=== PATIENT | female | born 2000 | race Caucasian/White ===

== ENCOUNTER 2025-07-02 19:40 | Emergency (ER) | payer BC, SELFPAY ==
--- NOTE | 2025-07-02 19:47 | ED_ITS ---
HPI - URI/Sore Throat General Chief Complaint: Upper Respiratory Infection Stated Complaint: Head Pain Source: patient and RN notes reviewed Mode of arrival: ambulatory Limitations: no limitations History of Present Illness MD elicited complaint: cough and sore throat Related Data Home Medications ?Medication ?Instructions ?Recorded ?Confirmed ?Last Taken ?Type etonogestrel 0.12 mg-ethinyl vag ring vaginal 07/02/25 Unknown History estradiol 0.015 mg/24 hr vaginal ring (EnilloRing) sertraline 25 mg tablet mg 07/02/25 Unknown History Allergies Allergy/AdvReac Type Severity Reaction Status Date / Time No Known Allergies Allergy Verified 07/02/25 19:47 Review of Systems Review of Systems: CONSTITUTIONAL: Denies malaise, chills, sweats, or fever. EYES: Denies visual changes, redness, or discharge. ENT: Reports rhinorrhea, congestion, sinus pain, otalgia and sore throat. CARDIOVASCULAR: Denies chest pain, palpitations, or edema. RESPIRATORY: Reports cough. Denies dyspnea. GASTROINTESTINAL: Denies abdominal pain, nausea, vomiting, diarrhea SKIN: Denies rash or itching. MUSCULOSKELETAL: Denies myalgia. NEUROLOGIC: Denies headache. All systems reviewed & are unremarkable except as noted in HPI and below PMFSH Comments At time of signature, agree with nursing past medical, surgical, social and family history. There is no relevant family history pertinent to the presenting complaint Exam Narrative: GENERAL: Well-appearing, well-nourished, and in no acute distress. HEAD: Normocephalic EYES: PERRLA, conjunctivae clear ENT: Nares clear, turbinates edematous and erythematous, clear discharge. Mucous membranes moist. TM pearly [place] with dull light reflex bilaterally; no tragal tenderness. Oropharynx not erythematous without lesions. Tonsils not enlarged and without exudate, no drooling, no hoarseness, no trismus, uvula midline. NECK: Supple. No lymphadenopathy CHEST: Clear to auscultation, breath sounds equal. No wheezing, rhonchi, rales, or stridor. No respiratory distress, speaks in full sentences. HEART: Regular rate and rhythm. No murmur heard. SKIN: Warm, dry, no rash. NEURO: Alert and oriented x3. PSYCH: Normal mood and affect Course Course Level of Care: Express Care Visit MDM Differential Diagnosis Differential Diagnosis: I evaluated this patient in the express care. History is obtained from patient who is an independent historian and physical exam was performed.? Available medical records were reviewed. ? Exam findings and relevant testing show no acute concerns or changes; patient is non-toxic appearing and is in no distress. ? Differential diagnosis considered: Davila virus, strep pharyngitis, allergic rhinitis, upper respiratory tract infection, sinusitis, rhinosinusitis, nasopharyngitis. viral pharyngitis, otitis media, otitis externa, pneumonia, bronchitis, viral cough syndrome, viral syndrome, and influenza. Differential diagnosis and treatment plan were discussed with the patient. Patient agrees with discussion and after shared medical decision making agrees with plan of care. All questions were answered to the patient's satisfaction. Patient is appropriate for outpatient treatment and follow-up. Discharge Plan Discharge Patient Language: [place] Prescriptions: No Action sertraline 25 mg tablet etonogestrel-ethinyl estradiol [EnilloRing] 0.12-0.015 mg/24 hr ring VAGINAL Follow-up/Referrals: PHYSICIAN,DOORS PREFITTER [Primary Care Provider, Internal Medicine]
[2025-07-02 19:50] VITALS: BP 141/85; PULSE 93; RESP 18; TEMP 36.9; O2SAT 100
--- NOTE | 2025-07-02 19:53 | ED_ITS ---
HPI - Headache General Chief Complaint: Headache Stated Complaint: Head Pain Time Seen by Provider: 07/02/25 19:50 Mode of arrival: ambulatory Limitations: no limitations History of Present Illness HPI Narrative: 24-year-old female presents concern for headache this started yesterday. Reports the headache is in the back of her head and her neck also hurts. She denies injury or trauma. She denies current cold symptoms however reports she does have left ear fullness. Reports she had a cold about 2 weeks ago and since then has had a fullness and crackling in her right ear. She denies nausea, vomiting. She denies history of migraines. She has been taking Tylenol without relief MD elicited complaint: headache Related Data Home Medications ?Medication ?Instructions ?Recorded ?Confirmed ?Last Taken ?Type etonogestrel 0.12 mg-ethinyl vag ring vaginal 07/02/25 Unknown History estradiol 0.015 mg/24 hr vaginal ring (EnilloRing) sertraline 25 mg tablet mg 07/02/25 Unknown History Allergies Allergy/AdvReac Type Severity Reaction Status Date / Time amoxicillin (From Augmentin) Allergy Mild Hives Verified 07/02/25 19:53 clavulanic acid (From Allergy Mild Hives Verified 07/02/25 19:53 Augmentin) Review of Systems Review of Systems: CONSTITUTIONAL: Denies malaise, chills, sweats, or fever. EYES: Denies visual changes, redness, or discharge. ENT: Denies rhinorrhea, congestion, sinus pain, or sore throat. Reports right ear fullness and crackling CARDIOVASCULAR: Denies chest pain, palpitations, or edema. RESPIRATORY: Denies cough or dyspnea. GASTROINTESTINAL: Denies nausea, vomiting MUSCULOSKELETAL: Reports myalgia. NEUROLOGIC: Denies numbness, weakness. Reports headache. All systems reviewed & are unremarkable except as noted in HPI and below PMFSH Comments At time of signature, agree with nursing past medical, surgical, social and family history. There is no relevant family history pertinent to the presenting complaint Exam Narrative: GENERAL: Well-appearing, well-nourished, and in no acute distress. HEAD: Normocephalic, atraumatic. EYES: PERRLA, sclera clear, and EOMI. No nystagmus. ENT: Nares clear, right turbinates erythematous and inflamed, no rhinorrhea or epistaxis. Mucous membranes moist. TM p[place] with sharp light reflex on the left, full on the right; no tragal tenderness. Oropharynx without erythema or lesions. Tonsils not enlarged and without exudate. NECK: Supple. No lymphadenopathy. No jugular venous distension, thyromegaly, or carotid bruits. Carotids were easily palpable bilaterally. CHEST: No respiratory distress. Clear to auscultation. No bony deformities, no asymmetry. Speaks in full sentences. HEART: Regular rate and rhythm. No murmur heard. Normal peripheral pulses. EXTREMITIES: Normal range of motion. No edema. Normal strength and sensation. SKIN: Warm, dry, no visible rash. NEURO: Alert and oriented x3. No focal deficits. Cranial nerves II through XII grossly intact PSYCH: Normal mood and affect Course Course Level of Care: [facility] Visit Vital Signs Vital signs: Vital Signs Temperature 98.4 F 07/02/25 19:50 Pulse Rate 93 07/02/25 19:50 Respiratory Rate 18 07/02/25 19:50 Blood Pressure 141/85 H 07/02/25 19:50 Pulse Oximetry 100 07/02/25 19:50 Oxygen Delivery Room Air 07/02/25 19:50 Temperature 98.4 F 07/02/25 19:50 Pulse Rate 93 07/02/25 19:50 Respiratory Rate 18 07/02/25 19:50 Blood Pressure 141/85 H 07/02/25 19:50 Pulse Oximetry 100 07/02/25 19:50 Oxygen Delivery Room Air 07/02/25 19:50 MDM Differential Diagnosis Differential Diagnosis: I evaluated this patient in the [facility]. History is obtained from patient who is an independent historian and physical exam was performed.? Available medical records were reviewed. ? Exam findings and relevant testing show no acute concerns or changes; patient is non-toxic appearing and is in no distress. ? Differential diagnostic considerations for headache include ?ICH, IC infx, migraine, tension GRUBBS, CVA/TIA, vasculitis/arteritis, cluster headache, dissection (carotid/vertebral), tumor/mass/abscess, thrombosis, meningitis, sinusitis, post-concussion syndrome. Differential diagnosis and treatment plan were discussed with the patient. Patient agrees with discussion and after shared medical decision making agrees with plan of care. All questions were answered to the patient's satisfaction. Patient is appropriate for outpatient treatment and follow-up. Discharge Plan Discharge Clinical Impression: Headache, Fluid level behind tympanic membrane of left ear Patient Disposition: Home Condition: Stable Instructions: Acute Headache (ED), Fluid In The Ear (Serous Otitis Media) (ED) Additional Instructions: 1) Please follow-up with your primary care doctor in the next 1-2 days. 2) If you have any worsening of symptoms or any other urgent concerns please go to the ER. 3) Please take medications as prescribed and continue taking your home medications as usual. 4) Please read and follow information included in discharge instructions. Patient Language: [place] Islander Prescriptions: New fluticasone propionate [Flonase Allergy Relief] 50 mcg/actuation spray,suspension 2 spray NASAL DAILY 14 Days Qty: 15.8 0RF Rx Instructions: administer into each nostril prednisone 20 mg tablet 40 mg PO DAILY 5 Days Qty: 10 0RF No Action sertraline 25 mg tablet etonogestrel-ethinyl estradiol [EnilloRing] 0.12-0.015 mg/24 hr ring VAGINAL Follow-up/Referrals: PHYSICIAN,PROJECT ASST [Primary Care Provider, Internal Medicine] Time of Disposition: 19:59
== END 2025-07-02 20:07 | disposition home or self-care (01) ==
PROVIDERS: Emergency Provider Nurse Practitioner
DX: R51.9 Headache, unspecified (principal); H73.892 Other specified disorders of tympanic membrane, left ear; F41.9 Anxiety disorder, unspecified; Z86.16 Personal history of COVID-19
CPT/HCPCS: 99213; G0463